=== PATIENT | male | born 1955 | race Caucasian/White ===

== ENCOUNTER 2018-05-30 09:40 | Day surgery (SDC) | payer MEDICAID ==
[~2018-05-30] VITALS: Ht 170.2 cm; Wt 61.2 kg
[2018-05-30] MEDS ORDERED: KETOROLAC 30 MG/ML VIAL ONE (11:13)
[2018-05-30] MEDS ORDERED: LIDOCAINE 2% 100 MG/5 ML UJET TP ONE (11:13)
== END 2018-05-30 12:15 | disposition home or self-care (01) ==
LOC: MDS 09:40 → MMU 09:40 → MDS 12:15
PROVIDERS: ATTEND Internal Medicine Gastroenterology
DX: K64.8 Other hemorrhoids (principal)
CPT/HCPCS: 45398; J1885